=== PATIENT | female | born 1990 | race African-American/Black ===

== ENCOUNTER 2018-01-24 06:01 | Emergency (ER) | payer SELFPAY ==
[~2018-01-24] VITALS: Ht 152.4 cm; Wt 50.0 kg
[2018-01-24 06:15] VITALS: Ht 152.4 cm; Wt 50.0 kg
[2018-01-24 06:47] LABS: BASOPHILS 0 % (0-2); EOSINOPHILS 0.1 % (0-7); HEMATOCRIT 36.9 % (36.0-48.0); HEMOGLOBIN 12.6 g/dL (12-16); IMMATURE GRANULOCYTES 0.3 % (0-5); LYMPHOCYTES 8.1 % (15-50); MCH 28.2 pg (26.0-34.0); MCHC 34.1 g/dL (31.0-37.0); MCV 82.6 fL (80.0-100.0); MEAN PLATELET VOLUME 9.8 fL (7.4-10.4); MONOCYTES 5.8 % (2-11); NEUTROPHILS 85.7 % (40-80); PLATELET COUNT 221 10x3/uL (130-400); RBC 4.47 10x6/uL (4.00-5.40); RDW 16.5 % (11.5-14.5)
[2018-01-24 07:01] LABS: ALBUMIN 3.2 g/dL (3.4-5.0); ALKALINE PHOSPHATASE 82 U/L (46-116); ALT (SGPT) 22 U/L (10-68); CALC OSMOLALITY 271 mosm/kg (275-300); CALCIUM 8.6 mg/dL (8.5-10.1); CHLORIDE - SERUM 103 mmol/L (98-107); CREATININE - SERUM 0.7 mg/dL (0.6-1.3); GLUCOSE 113 mg/dL (74-106); POTASSIUM - SERUM 3.8 mmol/L (3.5-5.1); PROTEIN - SERUM 7.8 g/dL (6.4-8.2); SODIUM 137 mmol/L (136-145); UREA NITROGEN 5 mg/dL (7-18); eGFR NON AFRICAN AMERICAN > 90 mL/min (90-120)
[2018-01-24 07:07] LABS: HCG - QUANTITATIVE (MATERNAL) 1 mIU/mL; LIPASE 103 U/L (73-393)
[2018-01-24 08:07] LABS: APPEARANCE CLOUDY (CLEAR); BILIRUBIN NEGATIVE (NEGATIVE); COLOR DY (YELLOW); GLUCOSE NEGATIVE (NEGATIVE); KETONE SMALL mg/dL (NEGATIVE); NITRITE POSITIVE (NEGATIVE); PROTEIN NEGATIVE (NEGATIVE); SPECIFIC GRAVITY 1.005 (1.005-1.020); UROBILINOGEN NORMAL (NORMAL)
[2018-01-24 08:08] LABS: BACTERIA MANY /hpf (NONE SEEN); RED CELLS - URINE OCC /hpf (0-5)
[2018-01-24 08:09] LABS: AMORPHOUS SEDIMENT <1+ /lpf (NONE SEEN); MUCUS <1+ /lpf (NONE SEEN)
[2018-01-24 08:57] VITALS: BP 114/65
== END 2018-01-24 08:59 | disposition home or self-care (01) ==
LOC: D.ER 06:01
PROVIDERS: Family Medicine
DX: K59.00 Constipation, unspecified (principal); F17.200 Nicotine dependence, unspecified, uncomplicated

== ENCOUNTER 2018-07-21 08:23 | Emergency (ER) | payer SELFPAY ==
[~2018-07-21] VITALS: Ht 152.4 cm; Wt 59.1 kg
[2018-07-21 08:27] VITALS: Ht 152.4 cm; Wt 59.1 kg
[2018-07-21] MEDS ORDERED: FLAGYL500 MG PO (09:08)
[2018-07-21] MEDS ORDERED: DOXYCYCLINE HY100 M2 PO (09:08)
[2018-07-21] MEDS ORDERED: VOLTAREN75 MG PO (09:08)
[2018-07-21 09:18] LABS: APPEARANCE HAZY (CLEAR); BILIRUBIN NEGATIVE (NEGATIVE); COLOR YELLOW (YELLOW); GLUCOSE NEGATIVE (NEGATIVE); KETONE NEGATIVE (NEGATIVE); NITRITE NEGATIVE (NEGATIVE); PROTEIN NEGATIVE (NEGATIVE); SPECIFIC GRAVITY 1.025 (1.005-1.020); UROBILINOGEN NORMAL (NORMAL)
[2018-07-21 09:58] VITALS: BP 105/60
== END 2018-07-21 09:55 | disposition home or self-care (01) ==
LOC: D.ER 08:23
PROVIDERS: Emergency Medicine
DX: R51 Headache (principal); N89.8 Other specified noninflammatory disorders of vagina

== ENCOUNTER 2019-01-13 21:23 | Emergency (ER) | payer SELFPAY ==
[~2019-01-13] VITALS: Ht 152.4 cm; Wt 57.7 kg
[~2019-01-13 21:23] MED LIST: DOXYCYCLINE HY100 M2 PO; FLAGYL500 MG PO; VOLTAREN75 MG PO
[2019-01-13 21:30] VITALS: Ht 152.4 cm; Wt 57.7 kg
[2019-01-13] MEDS ORDERED: CLEOCIN HCL300 MG PO (23:02)
[2019-01-13] MEDS ORDERED: HYDROCODON-ACE1 EAC7 PO (23:02)
[2019-01-13 23:22] VITALS: BP 115/60
== END 2019-01-13 23:21 | disposition home or self-care (01) ==
LOC: D.ER 21:23
DX: K08.89 Other specified disorders of teeth and supporting structures (principal)

== ENCOUNTER 2019-05-30 15:35 | Emergency (ER) | payer MEDICAID ==
[~2019-05-30] VITALS: Ht 152.4 cm; Wt 65.0 kg
[~2019-05-30 15:35] MED LIST changes: +CLEOCIN HCL300 MG PO; +HYDROCODON-ACE1 EAC7 PO
[2019-05-30 16:15] VITALS: Ht 152.4 cm; Wt 65.0 kg
[2019-05-30 18:20] LABS: APPEARANCE CLEAR (CLEAR); BILIRUBIN NEGATIVE (NEGATIVE); COLOR DK YELLOW (YELLOW); GLUCOSE NEGATIVE (NEGATIVE); KETONE NEGATIVE (NEGATIVE); NITRITE NEGATIVE (NEGATIVE); PROTEIN NEGATIVE (NEGATIVE); UROBILINOGEN NORMAL (NORMAL)
[2019-05-30 18:22] LABS: BACTERIA FEW /hpf (NEGATIVE); EPITHELIAL CELLS 0-5 /hpf (0-5); RED CELLS - URINE OCC /hpf (0-5); WHITE CELLS - URINE 0-5 /hpf (NEGATIVE)
[2019-05-30 18:58] LABS: HCG URINE NEGATIVE (NEGATIVE)
[2019-05-30] MEDS ORDERED: ZOFRAN ODT4 MG/UDTAB PO (20:21)
[2019-05-30] MEDS ORDERED: MUCINEX DM ER1 EAC1 PO (20:21)
[2019-05-30] MEDS ORDERED: CIPRO500 MG PO (20:21)
[2019-05-30 20:37] VITALS: BP 130/68
== END 2019-05-30 20:37 | disposition home or self-care (01) ==
LOC: D.ER 15:35
PROVIDERS: Family Medicine
DX: N39.0 Urinary tract infection, site not specified (principal); J06.9 Acute upper respiratory infection, unspecified; F17.210 Nicotine dependence, cigarettes, uncomplicated

== ENCOUNTER 2020-10-13 14:30 | Emergency (ER) | payer MEDICAID ==
[~2020-10-13] VITALS: Ht 152.4 cm; Wt 68.6 kg
[~2020-10-13 14:30] MED LIST changes: +CIPRO500 MG PO; +MACROBID100 MG PO; +MUCINEX DM ER1 EAC1 PO; +ZOFRAN ODT4 MG/UDTAB PO
[2020-10-13 15:06] VITALS: BP 109/68; Ht 152.4 cm; Wt 68.6 kg
== END 2020-10-13 17:56 | disposition left against medical advice (07) ==
LOC: D.ER 14:30
DX: T19.2XXA Foreign body in vulva and vagina, initial encounter (principal)